=== PATIENT | male | born 2000 | race Caucasian/White ===

== ENCOUNTER 2023-06-21 15:53 | Emergency (ER) | payer SELFPAY ==
[~2023-06-21] VITALS: Ht 175.3 cm; Wt 68.0 kg
[2023-06-21 16:11] VITALS: O2SAT 97
[2023-06-21] MEDS: SODIUM CHLORIDE 0.9% 1000ML BAG (SEPSIS BOLUS) IV ONE (18:36)
[2023-06-21] MEDS: CEFTRIAXONE 1GM/50ML 50 ML IV ONE (18:37)
[2023-06-21] MEDS: ACETAMINOPHEN 325MG TABLET PO NR (18:38)
[2023-06-21 18:49] LABS: HEMATOCRIT. 49.4 % (42.0-52.0); HEMOGLOBIN. 17.2 g/dL (14.0-18.0); MEAN CORPUSCULAR HEMOGLOBIN 31.1 pg (28.0-32.0); MEAN CORPUSCULAR HGB CONC 34.9 g/dL (31.0-37.0); MEAN CORPUSCULAR VOLUME 89.2 fL (80.0-94.0); MEAN PLATELET VOLUME 8.5 fl (7.4-10.4); PLATELET 232 x1000/uL (130-400); RED BLOOD CELL COUNT 5.54 mill/uL (4.7-6.1); RED CELL DISTRIBUTION WIDTH 12.8 % (11.6-14.6); WHITE BLOOD COUNT 12.2 x1000/uL (4.5-11.0)
[2023-06-21 18:56] LABS: DIFFERENTIAL COMMENT 1
[2023-06-21 19:01] LABS: PROTHROMBIN TIME 11.6 sec (9.6-11.0)
[2023-06-21 19:09] LABS: CLARITY URINE CLEAR (CLEAR); COLOR URINE YELLOW (YELLOW); GLUCOSE URINE NEGATIVE (NEGATIVE); KETONES URINE 3+ (NEGATIVE); LEUKOCYTE ESTERASE URINE NEGATIVE (NEGATIVE); NITRITE URINE NEGATIVE (NEGATIVE); OCCULT BLOOD URINE NEGATIVE (NEGATIVE); PH URINE 5.5 (4.5-8.0); PROTEIN URINE NEGATIVE (NEGATIVE); SPECIFIC GRAVITY URINE 1.014 (1.005-1.030); UROBILINOGEN URINE 0.2 E.U./dL (0.2-1.0)
[2023-06-21 19:11] LABS: ALANINE AMINOTRANSFERASE 11 IU/L (10-49); ALBUMIN 5.9 g/dL (3.2-4.8); ASPARTATE AMINOTRANSFERASE 20 IU/L (<34); BILIRUBIN TOTAL 0.8 mg/dL (0.1-1.0); CALCIUM 10.1 mg/dL (8.7-10.4); CARBON DIOXIDE 24 mEq/L (21-32); CHLORIDE 99 mEq/L (98-107); CREATININE 0.9 mg/dL (0.6-1.3); GLUCOSE 86 mg/dL (70-105); POTASSIUM 3.8 mEq/L (3.5-5.1); PROTEIN TOTAL 9.5 g/dL (6.0-8.3); SODIUM 133 mEq/L (136-145); UREA NITROGEN BLOOD 8 mg/dL (9-23)
[2023-06-21 19:25] LABS: PLATELET ESTIMATE NORMAL
[2023-06-21 20:46] VITALS: BP 120/77; PULSE 62; RESP 20; TEMP 98.9
== END 2023-06-21 21:10 | disposition home or self-care (01) ==
LOC: ER 15:53
DX: B34.9 Viral infection, unspecified (principal); F19.90 Other psychoactive substance use, unspecified, uncomplicated; Z98.890 Other specified postprocedural states
CPT/HCPCS: 99285; 96365; 71045; 80053; 81003; 83605; 85025; 85610; 87040; 87086; 87804 ×2; 36415; 84145; 93005; J0696; J7030